=== PATIENT | male | born 1945 | race Caucasian/White ===

== ENCOUNTER 2019-02-22 00:11 | Emergency (ER) | payer OTHER, MEDICARE, BC ==
[2019-02-22 00:22] VITALS: BP 183/111
--- NOTE | 2019-02-22 00:50 | EDM.PDOC ---
ED HPI GENERAL MEDICAL PROBLEM - General Chief Complaint: Upper Extremity Injury/Pain Stated Complaint: WRIST INJURY Time Seen by Provider: 02/22/19 00:37 Source of Information: Reports: Patient, Family (), RN Notes Reviewed History Limitations: Reports: No Limitations - History of Present Illness INITIAL COMMENTS - FREE TEXT/NARRATIVE: The patient states that he developed pain and swelling to his right wrist this past 02/18/2019, that has been progressively getting worse. He does not recall any injury to the wrist, specifically, but his points out that he did perform strenuous activity, moving a number of heavy items, on Wednesday, . No prior similar symptoms. The patient states that he took 2 Advil yesterday, and one Advil today around 22 :15, without relief of symptoms. The [facility]. Right Wrist Pain Score (Numeric/FACES): 10 - Related Data Allergies Allergy/AdvReac Type Severity Reaction Status Date / Time Penicillins Allergy Cannot Verified 02/22/19 00:22 Remember petrolatum,white Allergy Cannot Verified 02/22/19 00:22 Remember Home Meds: Home Meds Aspirin 1 tab PO DAILY 11/27/16 [History] Benazepril HCl [Lotensin] 40 mg PO DAILY 11/27/16 [History] Ibuprofen 200 mg PO TID PRN 11/27/16 [History] Multivitamin [Multivitamins] 1 tab PO DAILY 11/27/16 [History] atorvaSTATin Calcium [Atorvastatin Calcium] 20 mg PO BEDTIME 11/27/16 [History] hydroCHLOROthiazide [Hydrochlorothiazide] 12.5 mg PO DAILY 02/22/19 [History] Past Medical History Cardiovascular History: Reports: Aneurysm (AAA), High Cholesterol, Hypertension Respiratory History: Reports: Sleep Apnea Gastrointestinal History: Reports: Hepatitis Genitourinary History: Reports: Renal Calculus Musculoskeletal History: Reports: Osteoarthritis - Infectious Disease History Infectious Disease History: Reports: Hepatitis C, Other (See Below) (Malaria) - Past Surgical History HEENT Surgical History: Reports: Tonsillectomy GI Surgical History: Reports: Appendectomy Social & Family History - Tobacco Use Smoking Status *Q: Former Smoker Years of Tobacco use: 57 Packs/Tins Daily: 1 Month/Year Tobacco Last Used: Quit 2017 - Caffeine Use Caffeine Use: Reports: None - Alcohol Use Alcohol Use History: No - Recreational Drug Use Recreational Drug Use: No - Living Situation & Occupation Living situation: Reports: , with Spouse, with Family (Son) Occupation: Retired Review of Systems - Review of Systems Review Of Systems: ROS reveals no pertinent complaints other than HPI. ED EXAM, GENERAL - Physical Exam Exam: See Below Exam Limited By: No Limitations General Appearance: Alert, WD/WN, No Apparent Distress Extremities: Other (Visible swelling and tenderness, without any other visible abnormality, such as erythema, ecchymosis, or abrasion, and with no associated increased warmth, to the radial aspect of the wrist, particularly over the distal radius/proximal right hand. Very limited AROM and PROM in flexion and extension due to pain. Neurovascular status of the right upper extremity is intact.) Course - Vital Signs Last Recorded V/S: Last Vital Signs Temp 37.2 C 02/22/19 00:17 Pulse 84 02/22/19 00:17 Resp 20 02/22/19 00:17 BP 183/111 H 02/22/19 00:17 Pulse Ox 97 02/22/19 00:17 - Re-Assessments/Exams Free Text/Narrative Re-Assessment/Exam: 02/22/19 00:48 The cause of the patient's painful right wrist swelling is unclear. I suspect that it is inflammation of soft tissue in etiology, possibly related to when he performed strenuous activity a week ago. For tonight's purposes, I have ordered x-rays of his right wrist to rule out an anatomic abnormality. 02/22/19 01:09 4-view radiographs of the right wrist appear to demonstrate advanced degenerative changes to virtually all of the wrist and carpal joints, particularly to the radioscaphoid joint. There is a small opacity noted the dorsal aspect of the wrist seen on the lateral view, possibly reflecting an avulsion. No fracture or dislocation otherwise identified. Formal read per the Radiologist pending. 02/22/19 01:20 X-ray results discussed with the patient and his . I suspect that the patient's painful swelling is due to arthritis, however, it could be do to an avulsion. For today's purposes, we will fit the patient with a Velcro wrist splint that he can remove when he bathes. I would like him to ice and elevate the wrist is much as possible for the next 48 hours, and take occi-nhx-rdpleil ibuprofen on a regular basis, not intermittently. I will refer him to Dr. Zapata for follow-up. Departure - Departure Time of Disposition: 01:20 Disposition: Home, Self-Care 01 Condition: Good Clinical Impression: Pain and swelling of right wrist - Discharge Information *PRESCRIPTION DRUG MONITORING PROGRAM REVIEWED*: Not Applicable *COPY OF PRESCRIPTION DRUG MONITORING REPORT IN PATIENT JOSEMANUEL: Not Applicable Instructions: Wrist Pain, Adult, [id number] Referrals: Grayson Zapata MD [Physician] - Forms: ED Department Discharge Additional Instructions: You were seen in the emergency room for several days of painful swelling to her right wrist. Workup in the ER included x-rays of your right wrist, which show advanced degenerative changes (arthritis) to the joints in your wrist and hand. You may also have an avulsion fracture. You have been placed into a Velcro wrist splint, which you should wear all the time, except when you bathe. Ice and elevate your right wrist as much as possible for the next 48 hours. Take empd-syw-sdigtmt ibuprofen, 3 tablets (600 mg) every 8 hours, with food, as needed for discomfort. It is best if you take this medicine [id number]. Follow-up with the Orthopedic Surgeon Dr. Grayson Zapata at the next available appointment. If any other problems, please do not hesitate to return to the ER.
--- NOTE | 2019-02-22 12:37 | CR ---
Right wrist: Four views of the right wrist were obtained. Comparison: No prior wrist exam. Joint space narrowing is noted between the radius and navicular bone. Moderate degenerative change is seen at the CMC joint of the thumb. Bony structures are slightly osteopenic. No acute fracture or other bony abnormality is identified. Impression: 1. Osteopenia and degenerative change. 2. No acute abnormality is appreciated. Diagnostic code #2
== END 2019-02-22 01:29 | disposition home or self-care (01) ==
LOC: JD.ED 00:11
DX: M25.431 Effusion, right wrist (principal); I10 Essential (primary) hypertension; Z79.82 Long term (current) use of aspirin; Z79.899 Other long term (current) drug therapy; M19.90 Unspecified osteoarthritis, unspecified site; Z90.49 Acquired absence of other specified parts of digestive tract; Z98.890 Other specified postprocedural states; Z88.0 Allergy status to penicillin; Z88.8 Allergy status to other drugs, medicaments and biological substances; Z87.891 Personal history of nicotine dependence
CPT/HCPCS: 73110-26-RT; 73110-RT; 99282; 99283-25

== ENCOUNTER 2020-08-21 03:11 | Emergency (ER) | payer MEDICARE, BC, OTHER ==
[2020-08-21 03:22] VITALS: BP 149/112; PULSE 54
--- NOTE | 2020-08-21 03:26 | EDM.PDOC ---
ED HPI GENERAL MEDICAL PROBLEM - General Chief Complaint: Neuro Symptoms/Deficits Stated Complaint: [facility] Time Seen by Provider: 08/21/20 03:11 - History of Present Illness INITIAL COMMENTS - FREE TEXT/NARRATIVE: 75-year-old male brought in by EMS with stroke symptoms. This gentleman went to bed at 9:00 this evening was woken at about 140 by his because the electricity was out the patient got up and went to the bathroom. He did not come out of the bathroom the went and found him about 20 to 30 minutes later with slurred speech slumped over sitting on the toilet. She called 911 they found him to be responsive but with very slurred speech had a left-sided facial droop and had no activity whatsoever with his left arm or leg. There was some confusion initially we understood that the patient did not speak when he woke up but over time family did clarify that he was speaking clearly before he went to the bathroom. Patient has a history of a AAA that they are watching he is treated for hyperte nsion hyperlipidemia. His blood sugar here in the emergency room was 109 his blood pressures have been in the 150s or lower. His pulse rate has been mildly bradycardic in the 50s. - Related Data Allergies Allergy/AdvReac Type Severity Reaction Status Date / Time Penicillins Allergy Cannot Verified 08/21/20 03:17 Remember petrolatum,white Allergy Cannot Verified 08/21/20 03:17 Remember Home Meds: Home Meds Aspirin 1 tab PO DAILY 11/27/16 [History] Benazepril HCl [Lotensin] 40 mg PO DAILY 11/27/16 [History] Ibuprofen 200 mg PO TID PRN 11/27/16 [History] Multivitamin [Multivitamins] 1 tab PO DAILY 11/27/16 [History] atorvaSTATin Calcium [Atorvastatin Calcium] 20 mg PO BEDTIME 11/27/16 [History] hydroCHLOROthiazide [Hydrochlorothiazide] 12.5 mg PO DAILY 02/22/19 [History] Past Medical History Cardiovascular History: Reports: Aneurysm (AAA), High Cholesterol, Hypertension Respiratory History: Reports: Sleep Apnea Gastrointestinal History: Reports: Hepatitis Other Gastrointestinal History: 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 Genitourinary History: Reports: Renal Calculus Musculoskeletal History: Reports: Osteoarthritis Other Musculoskeletal History: pilonidil cyst - Infectious Disease History Infectious Disease History: Reports: Hepatitis C, Other (See Below) (Malaria) Other Infectious Disease History: malaria - Past Surgical History HEENT Surgical History: Reports: Tonsillectomy GI Surgical History: Reports: Appendectomy Social & Family History - Caffeine Use Caffeine Use: Reports: None - Living Situation & Occupation Living situation: Reports: , with Spouse, with Family (Son) Occupation: Retired ED ROS GENERAL - Review of Systems Review Of Systems: Unable To Obtain Reason Not Obtained: The timing and the slurred speech ED EXAM, NEURO - Physical Exam Exam: See Below Exam Limited By: Other (He is got a significant left-sided neglect he has no activity with his left upper and lower extremities he is got a marked left facial drooping) General Appearance: No Apparent Distress, Other (Significant stroke findings left-sided weakness left facial droop left-sided neglect) Eye Exam: Bilateral Eye: Normal Inspection (However he will not focus at or near midline) Head Exam: Atraumatic, Normocephalic Neck: Normal Inspection, Supple, Non-Tender, Full Range of Motion. No: Lymphadenopathy (L), Lymphadenopathy (R) Respiratory/Chest: No Respiratory Distress, Lungs Clear, Normal Breath Sounds Cardiovascular: Regular Rate, Rhythm, No Edema, No Murmur GI/Abdominal: Normal Bowel Sounds, Soft, Non-Tender Neurological: Other (The patient has no voluntary movement of his left extremities. He cannot hold them up against gravity and even though he understa nds cannot wiggle his fingers or toes. He has a marked left sided facial droop and weakness) Course - Vital Signs Last Recorded V/S: Last Vital Signs Temp 36.8 C 08/21/20 03:18 Pulse 54 L 08/21/20 03:18 Resp 14 08/21/20 03:18 BP 149/112 H 08/21/20 03:18 Pulse Ox 92 L 08/21/20 03:18 - Orders/Labs/Meds Orders: Active Orders 24 hr Category Date Time Status EKG 12 Lead [EKG Documentation Completion] [RC] STAT Care 08/21/20 03:33 Active Head wo Cont [CT] Stat Exams 08/21/20 03:15 Taken CBC WITH MANUAL DIFF [HEME] Stat Lab 08/21/20 03:21 Results CORONAVIRUS COVID-19 MALI [MOLEC] Stat Lab 08/21/20 03:21 Received Labs: Laboratory Tests 08/21/20 08/21/20 08/21/20 Range/Units 03:20 03:21 03:21 WBC 8.02 (4.23-9.07) K/mm3 RBC 5.48 (4.63-6.08) M/mm3 Hgb 16.3 (13.7-17.5) gm/dl Hct 50.1 (40.1-51.0) % MCV 91.4 (79.0-92.2) fl MCH 29.7 (25.7-32.2) pg MCHC 32.5 (32.2-35.5) g/dl RDW Std Deviation 48.0 H (35.1-43.9) fL Plt Count 246 (163-337) K/mm3 MPV 10.1 (9.4-12.3) fl PT (9.7-12.0) SECONDS INR APTT (21.7-31.4) SECONDS Sodium 141 (136-145) mEq/L Potassium 3.6 (3.5-5.1) mEq/L Chloride 105 (98-107) mEq/L Carbon Dioxide 26 (21-32) mEq/L Anion Gap 13.6 (5-15) BUN 27 H (7-18) mg/dL Creatinine 1.5 H (0.7-1.3) mg/dL Est Cr Clr Drug Dosing 44.62 mL/min Estimated GFR (MDRD) 46 (>60) mL/min BUN/Creatinine Ratio 18.0 (14-18) Glucose 132 H (83-115) mg/dL POC Glucose 109 (83-110) mg/dL Calcium 9.1 (8.5-10.1) mg/dL Total Bilirubin 0.4 (0.2-1.0) mg/dL AST 19 (15-37) U/L ALT 28 (16-63) U/L Alkaline Phosphatase 81 (46-116) U/L Troponin I 0.020 (0.00-0.056) ng/mL Total Protein 7.4 (6.4-8.2) g/dl Albumin 3.6 (3.4-5.0) g/dl Globulin 3.8 gm/dL Albumin/Globulin Ratio 1.0 (1-2) 08/21/20 Range/Units 03:21 WBC (4.23-9.07) K/mm3 RBC (4.63-6.08) M/mm3 Hgb (13.7-17.5) gm/dl Hct (40.1-51.0) % MCV (79.0-92.2) fl MCH (25.7-32.2) pg MCHC (32.2-35.5) g/dl RDW Std Deviation (35.1-43.9) fL Plt Count (163-337) K/mm3 MPV (9.4-12.3) fl PT 10.8 (9.7-12.0) SECONDS INR 1.01 APTT 23.9 (21.7-31.4) SECONDS Sodium (136-145) mEq/L Potassium (3.5-5.1) mEq/L Chloride (98-107) mEq/L Carbon Dioxide (21-32) mEq/L Anion Gap (5-15) BUN (7-18) mg/dL Creatinine (0.7-1.3) mg/dL Est Cr Clr Drug Dosing mL/min Estimated GFR (MDRD) (>60) mL/min BUN/Creatinine Ratio (14-18) Glucose (83-115) mg/dL POC Glucose (83-110) mg/dL Calcium (8.5-10.1) mg/dL Total Bilirubin (0.2-1.0) mg/dL AST (15-37) U/L ALT (16-63) U/L Alkaline Phosphatase (46-116) U/L Troponin I (0.00-0.056) ng/mL Total Protein (6.4-8.2) g/dl Albumin (3.4-5.0) g/dl Globulin gm/dL Albumin/Globulin Ratio (1-2) - Re-Assessments/Exams Free Text/Narrative Re-Assessment/Exam: 08/21/20 04:18 The patient obviously has a significant right-sided infarct with left-sided facial drooping and absolutely no muscle tone on his left upper and lower extremities. I spent 20 minutes on the phone with [facility] in [place] and had a long discussion with Dr. Sparks the stroke neurologist who recommended against thrombolytic therapy and was hopeful that thrombectomy might be helpful unfortunately as time went by it was evident that they did not have the beds available to accept him. I spent 5 minutes talking it over with [facility] in [place] they do not have the beds. I got on the phone with [facility] in [place] who is kind enough to accept him in transfer Case discussed with Dr. Sharpe stroke neurologist on-call who agrees with holding thrombolytics as big strokes generally do not respond and they have a much higher incidence of intracranial hemorrhage. He recommended getting the patient there as quickly as possible. He accepted the patient at [phone]. The flight crew actually had arrived just a few minutes after the patient was accepted. I did discuss this with the family and this is when they said that he was talking clearly at the time he was woken up at 140 this morning and clarified this with Dr. Sharpe who recommends getting the patient there as quickly as possible and avoiding thrombolytics. Is a DNR if for some reason he is to stop breathing or his heart stops. I discussed the situation with the patient's 3 siblings and all questions were answered and they left the department without any unanswered questions. Departure - Departure Time of Disposition: 04:04 Disposition: DC/Tfer to Acute Hospital 02 Clinical Impression: CVA (cerebral vascular accident) - Discharge Information Forms: ED Department Discharge Sepsis Event Note (ED) - Focused Exam Vital Signs: Vital Signs Temp Pulse Resp BP Pulse Ox 08/21/20 03:18 36.8 C 54 L 14 149/112 H 92 L - My Orders Last 24 Hours: My Active Orders 08/21/20 03:15 Head wo Cont [CT] Stat 08/21/20 03:21 CBC WITH MANUAL DIFF [HEME] Stat CORONAVIRUS COVID-19 MALI [MOLEC] Stat 08/21/20 03:33 EKG 12 Lead [EKG Documentation Completion] [RC] STAT - Assessment/Plan Last 24 Hours: My Active Orders 08/21/20 03:15 Head wo Cont [CT] Stat 08/21/20 03:21 CBC WITH MANUAL DIFF [HEME] Stat CORONAVIRUS COVID-19 MALI [MOLEC] Stat 08/21/20 03:33 EKG 12 Lead [EKG Documentation Completion] [RC] STAT
--- NOTE | 2020-08-21 08:53 | CT ---
PROCEDURE INFORMATION: Exam: CT Head Without Contrast Exam date and time: 08/21/2020 3:08 AM Age: 75 years old Clinical indication: Speech disturbance and weakness, facial; Slurred speech TECHNIQUE: Imaging protocol: Computed tomography of the head without contrast. Radiation optimization: All CT scans at this facility use at least one of these dose optimization techniques: automated exposure control; mA and/or kV adjustment per patient size (includes targeted exams where dose is matched to clinical indication); or iterative reconstruction. Other technique: STROKE PROTOCOL was implemented. COMPARISON: 1. CT Head wo Cont 11/27/2016 2:23 PM 2. (No prior similar studies are available for comparison.) FINDINGS: Periventricular white matter low attenuation consistent with chronic small vessel disease. There is no mass lesion or mass effect. There is diffuse central and cortical atrophy consistent with age. There is no CT evidence of acute parenchymal ischemia. There is no intra-axial or extra-axial hemorrhage. There is no evidence of acute obstructive sinonasal disease. Mastoid air cells are grossly normal. Visualized osseous structures are normal. Other findings: EXAM TYPE: CT of the BRAIN; DATE AND TIME: 08/21/2020 3:08 AM; CLINICAL INFORMATION:; Speech disturbance and weakness, facial; Slurred speech IMPRESSION: 1. Central and cortical atrophy consistent with age. 2. No CT evidence of acute infarction, intracranial hemorrhage or mass. No change since prior study dated 11/27/2016. ASSESSMENT: ASPECTS ([place] Stroke Program Early CT Score) is 10. Thank you for allowing us to participate in the care of your patient. Dictated and Authenticated by: Isac Parisi MD 08/21/2020 4:24 AM Central Time ([place] & [place]) MARII[place]
== END 2020-08-21 04:04 ==
LOC: JD.ED 03:11
DX: I63.9 Cerebral infarction, unspecified (principal); E78.00 Pure hypercholesterolemia, unspecified; I10 Essential (primary) hypertension; M19.90 Unspecified osteoarthritis, unspecified site; Z79.82 Long term (current) use of aspirin; Z79.899 Other long term (current) drug therapy; Z88.0 Allergy status to penicillin; Z91.048 Other nonmedicinal substance allergy status; Z20.828 Contact with and (suspected) exposure to other viral communicable diseases
CPT/HCPCS: 36415; 70450; 80053; 82962; 84484; 85007; 85027; 85610; 85730; 93005; 99285; U0002; 93010